=== PATIENT | male | born 1990 | race Caucasian/White ===

== ENCOUNTER 2022-04-09 16:25 | Outpatient (REF) | payer OTHER, SELFPAY ==
[2022-04-09 20:50] LABS: Anion Gap 9.9 mmol/L (3-11); BUN 10 mg/dL (7-18); CO2 28.1 mmol/L (21.0-32.0); CREATININE 0.9 mg/dL (0.70-1.30); Calcium 9.3 mg/dL (8.5-10.1); Calculated LDL 155 mg/dL (<100); Chloride 103 mmol/L (98-107); Cholesterol 218 mg/dL (<200); Estimated GFR 117.83 (mL/min/1.73m2); Glucose 76 mg/dL (74-106); HDL Cholesterol 40 mg/dL (40-60); Potassium 3.9 mmol/L (3.5-5.1); Sodium 141 mmol/L (136-145); Triglyceride 116 mg/dL (<150)
== END 2022-04-09 16:26 | disposition home or self-care (01) ==
LOC: NCHCN 16:25
PROVIDERS: Visit Provider Nurse Practitioner Family
DX: Z00.00 Encounter for general adult medical examination without abnormal findings (principal); Z13.220 Encounter for screening for lipoid disorders; Z13.1 Encounter for screening for diabetes mellitus; G43.109 Migraine with aura, not intractable, without status migrainosus; R05.3 Chronic cough; E66.9 Obesity, unspecified; Z71.89 Other specified counseling
CPT/HCPCS: 80048; 80061

== ENCOUNTER 2024-05-09 10:21 | Outpatient (REF) | payer OTHER, SELFPAY ==
[2024-05-09 15:09] LABS: Anion Gap 8.6 mmol/L (3-11); BUN 8 mg/dL (7-18); CO2 26.4 mmol/L (21.0-32.0); CREATININE 0.9 mg/dL (0.70-1.30); Calcium 8.9 mg/dL (8.5-10.1); Calculated LDL 154 mg/dL (<100); Chloride 107 mmol/L (98-107); Cholesterol 213 mg/dL (<200); Estimated GFR 116.37 (mL/min/1.73m2); Glucose 100 mg/dL (74-106); HDL Cholesterol 43 mg/dL (40-60); Sodium 142 mmol/L (136-145); Triglyceride 84 mg/dL (<150)
== END 2024-05-09 10:22 | disposition home or self-care (01) ==
LOC: NCHCN 10:21
PROVIDERS: PCP Nurse Practitioner Family; Visit Provider Nurse Practitioner Family
DX: Z00.00 Encounter for general adult medical examination without abnormal findings (principal)
CPT/HCPCS: 80048; 80061